=== PATIENT | male | born 2005 | race Caucasian/White ===

== ENCOUNTER 2025-07-17 10:00 | Outpatient (CLI) | payer OTHER, SELFPAY ==
[2025-07-17 15:59] LABS: Chlamydia DNA Amplified* DETECTED (No Detected); GC DNA Amplified* NOT DETECTED (No Detected)
== END 2025-07-17 10:01 | disposition home or self-care (01) ==
LOC: NPINS 10:01
PROVIDERS: Visit Provider Pediatrics
DX: A74.9 Chlamydial infection, unspecified (principal)
CPT/HCPCS: 87491; 87591